=== PATIENT | female | born 1980 | race Caucasian/White ===

== ENCOUNTER → 2019-02-12 | Outpatient (CLI) | payer BC ==
[2019-02-12 15:45] LABS: Basophils % (A) 1 %; Eosinophils # (A) 0.1 k/uL (0-0.7); Eosinophils % (A) 2 %; HCT 39.2 % (34.0-46.0); HGB 12.7 gm/dL (11.4-16.0); Lymphocytes # (A) 2.2 k/uL (1.0-4.8); Lymphocytes % (A) 33 %; MCHC 32.3 g/dL (31.0-37.0); MCV 89.9 fL (80.0-100.0); Mean Platelet Volume 6.2; Monocytes # (A) 0.3 k/uL (0-1.0); Monocytes % (A) 5 %; Neutrophils % (A) 59 %; Platelet Count 341 k/uL (150-450); RBC 4.37 m/uL (3.80-5.40); RDW 13.4 % (11.5-15.5); WBC 6.8 k/uL (3.8-10.6)
== END | disposition home or self-care (01) ==
LOC: LABPAT 14:46
PROVIDERS: ATTEND Obstetrics & Gynecology
DX: Z01.812 Encounter for preprocedural laboratory examination (principal); N92.0 Excessive and frequent menstruation with regular cycle
CPT/HCPCS: 36415; 85025

== ENCOUNTER 2019-02-26 06:27 | Day surgery (SDC) | payer BC ==
[2019-02-25 09:43] VITALS: BMI 26.5
[~2019-02-26 06:27] MED LIST: DEXAMETHASONE SOD PHOSPHATE 10 MG/ML 1 ML VIAL IV ONE; LACTATED RINGERS 1,000 ML IV SCH; LIDOCAINE 1% 20 ML VIAL (10MG/ML) FOR IV START INTRADERMA PRN; ONDANSETRON 4 MG/2 ML VIAL IVP ONE; Pre Op ABX Message 1 EACH MISC MISCELLANE ONE; fentaNYL (PF) 50 MCG/ML 2 ML AMP IV PRN
[2019-02-26] MEDS ORDERED: MIDAZOLAM 2 MG/2 ML VIAL ONE (07:25)
[2019-02-26] MEDS ORDERED: fentaNYL (PF) 50 MCG/ML 2 ML AMP ONE (07:25)
[2019-02-26] MEDS ORDERED: KETOROLAC 30 MG/ML 1 ML VIAL ONE (07:25)
[2019-02-26] MEDS ORDERED: PROPOFOL 10 MG/ML 20 ML VIAL IV ONE (07:25)
[2019-02-26] MEDS ORDERED: LIDOCAINE 1% INJ 10MG/ML (20 ML MDV) ONE (07:25)
[2019-02-26] MEDS ORDERED: LIDOCAINE 1%-EPI 1:100,000 20 ML VIAL SQ ONE ×2 (07:44)
--- NOTE | 2019-02-26 07:57 | P.OP ---
Date of Procedure: 02/26/19 Preoperative Diagnosis: Menometrorrhagia Postoperative Diagnosis: Same Procedure(s) Performed: Diagnostic hysteroscopy and NovaSure endometrial ablation Anesthesia: KARLOS Surgeon: Farideh Sheriff Estimated Blood Loss (ml): 5 IV fluids (ml): 300 Urine output (ml): 50 Pathology: none sent Condition: stable Disposition: PACU Operative Findings: Fluffy endometrium with no gross intracavitary lesions Description of Procedure: After the patient was met in the preoperative holding area and all questions were answered, she was taken the operating room where anesthetic was administered without incident. Appropriate timeout procedure was undertaken. She was positioned, prepped and draped in the dorsal lithotomy position. Bladder was drained for approximately 50 mL of clear urine. Exam under anesthet ic was undertaken. Speculum was placed in the vagina and the cervix was grasped anteriorly with a single-tooth tenaculum. Paracervical block was placed with lidocaine plus epinephrine. Uterus was sounded to 8 cm. The cervix was then sequentially dilated to allow for passage of the diagnostic hysteroscope. Hegar dilators were utilized. The hysteroscope was introduced and the above findings were noted. The cystoscope was removed and the NovaSure endometrial ablation device was introduced. Cavity assessment test was passed. The device was enabled. Cavity length was 4.5 cm, width 3.5 cm, power 87 W, time 92 seconds. Following cessation of the treatment cycle the device was removed and the hysteroscope was reintroduced. Complete desiccation of the endometrium was noted. All instruments were then removed. The cervix was observed and no active bleeding was noted from the tenaculum sites. Speculum was removed. The patient was awoken from anesthetic and transported recovery area in stable condition. All counts reported to me as correct.
[2019-02-26 08:16] VITALS: TEMP 97
[2019-02-26] MEDS: HYDROmorphone 0.5 MG/0.5 ML SYRINGE IVP PRN ×3 (08:25→08:49)
[2019-02-26 08:33] VITALS: RESP 16
[2019-02-26 09:44] VITALS: BP 113/71; PULSE 95
== END 2019-02-26 10:10 | disposition home or self-care (01) ==
LOC: OR 06:27
PROVIDERS: ATTEND Obstetrics & Gynecology
DX: N92.1 Excessive and frequent menstruation with irregular cycle (principal); F32.9 Major depressive disorder, single episode, unspecified; Z82.49 Family history of ischemic heart disease and other diseases of the circulatory system; Z83.3 Family history of diabetes mellitus; Z83.49 Family history of other endocrine, nutritional and metabolic diseases; Z80.49 Family history of malignant neoplasm of other genital organs; Z79.899 Other long term (current) drug therapy; Z88.1 Allergy status to other antibiotic agents; Z88.0 Allergy status to penicillin
CPT/HCPCS: 81025; 58563; J2250; J1100; J2405; J2001; J3010; J1885; J2704; J1170

== ENCOUNTER → 2022-05-04 | Outpatient (CLI) | payer BC ==
[2022-05-04 15:47] LABS: % Iron Saturation 25.76 (12.00-45.00); ALT 20 U/L (8-44); AST 19 U/L (13-35); Albumin 4.4 g/dL (3.8-4.9); Albumin/Globulin Ratio 1.69 (1.60-3.17); Alkaline Phosphatase 64 U/L (41-126); BUN/Creat Ratio 22.14 Ratio (12.00-20.00); Blood Urea Nitrogen 15.5 mg/dL (9.0-27.0); Calcium 9.3 mg/dL (8.7-10.3); Carbon Dioxide 23.3 mmol/L (20.0-27.5); Chloride 104 mmol/L (96-109); Chol/HDL Ratio 3.06 Ratio; Globulin 2.6 g/dL (1.6-3.3); Glucose 75 mg/dL (70-110); Iron 110 ug/dL (50-170); LDL Cholesterol,Calculated 156.5 mg/dL (0.0-131.0); Non-African American GFR(CKD) 106.1 (60.0-200.0); Potassium 4.4 mmol/L (3.5-5.5); Sodium 140 mmol/L (135-145); Total Bilirubin <0.15 mg/dL (0.30-1.20); Total Iron Binding Capacity 427 ug/dL (228-460)
== END | disposition home or self-care (01) ==
LOC: LABWHC1 08:15
PROVIDERS: ATTEND Family Medicine
DX: Z13.220 Encounter for screening for lipoid disorders (principal); E61.1 Iron deficiency; E55.9 Vitamin D deficiency, unspecified; D51.8 Other vitamin B12 deficiency anemias; R53.83 Other fatigue
CPT/HCPCS: 36415; 80053; 80061; 82306; 82607; 83540; 83550; 84443

== ENCOUNTER → 2023-05-10 | Outpatient (CLI) | payer BC ==
[2023-05-10 15:18] LABS: Basophils # (A) 0.07 X 10*3/uL (0.00-0.10); Basophils % (A) 1.1 %; Eosinophils # (A) 0.15 X 10*3/uL (0.04-0.35); Eosinophils % (A) 2.3 %; HGB 13.8 g/dL (12.0-15.0); Lymphocytes # (A) 2.13 X 10*3/uL (0.90-5.00); Lymphocytes % (A) 32.5 %; MCH 29.4 pg (27.0-32.0); MCHC 32.1 g/dL (32.0-37.0); MCV 91.5 FL (80.0-97.0); Mean Platelet Volume 10.6 FL (9.5-12.2); Monocytes # (A) 0.47 X 10*3/uL (0.20-1.00); Monocytes % (A) 7.2 %; NRBC Per 100 WBC 0 X 10*3/uL (0.00-0.01); Neutrophils # (A) 3.72 X 10*3/uL (1.80-7.70); Neutrophils % (A) 56.6 %; Platelet Count 406 X 10*3/uL (140-440); RDW 14.4 % (11.5-14.5); WBC 6.56 X 10*3/uL (4.50-10.00)
[2023-05-10 15:37] LABS: % Iron Saturation 45.43 (12.00-45.00); Blood Urea Nitrogen 12.6 mg/dL (9.0-27.0); Chol/HDL Ratio 3.45 Ratio; Glucose 97 mg/dL (70-110); Iron 154 UG/DL (50-170); LDL Cholesterol,Calculated 143.9 mg/dL (0.0-131.0); Total Iron Binding Capacity 339 UG/DL (228-460)
[2023-05-10 15:38] LABS: ALT 18 U/L (8-44); AST 18 U/L (13-35); Albumin 4.2 g/dL (3.8-4.9); Albumin/Globulin Ratio 1.68 Ratio (1.60-3.17); Alkaline Phosphatase 62 U/L (41-126); Calcium 9.5 mg/dL (8.7-10.3); Carbon Dioxide 24.6 mmol/L (21.6-31.8); Chloride 104 mmol/L (96-109); Ferritin 33.8 ng/mL (10.0-291.0); Globulin 2.5 g/dL (1.6-3.3); Potassium 4.5 mmol/L (3.5-5.5); Sodium 140 mmol/L (135-145); Total Bilirubin 0.4 mg/dL (0.3-1.2); Total Protein 6.7 g/dL (6.2-8.2)
[2023-05-10 18:04] LABS: Hepatitis A Antibody IgM Nonreactive; Hepatitis B Core IgM Nonreactive; Hepatitis B Surface Antigen Nonreactive; Hepatitis C IgG Antibody Nonreactive
== END | disposition home or self-care (01) ==
LOC: LABWHC1 11:03
PROVIDERS: ATTEND Internal Medicine
DX: Z00.00 Encounter for general adult medical examination without abnormal findings (principal); Z11.59 Encounter for screening for other viral diseases; E55.9 Vitamin D deficiency, unspecified; J30.2 Other seasonal allergic rhinitis
CPT/HCPCS: 36415; 80053; 80061; 80074; 82306; 82728; 83540; 83550; 84443; 85025

== ENCOUNTER → 2023-05-12 | Outpatient (CLI) | payer BC ==
[2023-05-12 18:21] LABS: HCT 42.5 % (37.2-46.3); HGB 13.7 g/dL (12.0-15.0); MCH 29.4 pg (27.0-32.0); MCHC 32.2 g/dL (32.0-37.0); MCV 91.2 FL (80.0-97.0); Mean Platelet Volume 10.4 FL (9.5-12.2); NRBC Per 100 WBC 0 X 10*3/uL (0.00-0.01); Platelet Count 455 X 10*3/uL (140-440); RBC 4.66 X 10*6/uL (4.10-5.20); RDW 14.2 % (11.5-14.5); WBC 8.37 X 10*3/uL (4.50-10.00)
[2023-05-12 18:40] LABS: % Iron Saturation 40.11 (12.00-45.00)
[2023-05-12 19:38] LABS: Ferritin 45.6 ng/mL (10.0-291.0)
== END | disposition home or self-care (01) ==
LOC: LABWHC1 13:01
PROVIDERS: ATTEND Internal Medicine
DX: E83.19 Other disorders of iron metabolism (principal)
CPT/HCPCS: 36415; 82728; 83540; 83550; 85027

== ENCOUNTER → 2024-07-25 | Outpatient (CLI) | payer OTHER ==
[2024-07-25 14:48] LABS: Basophils % (A) 1.4 %; Eosinophils % (A) 2.8 %; HGB 14.7 g/dL (12.0-15.0); Lymphocytes # (A) 2.48 X 10*3/uL (0.90-5.00); MCH 29.3 pg (27.0-32.0); MCHC 32.7 g/dL (32.0-37.0); MCV 89.6 FL (80.0-97.0); Mean Platelet Volume 10.7 FL (9.5-12.2); Monocytes # (A) 0.59 X 10*3/uL (0.20-1.00); Monocytes % (A) 8.3 %; NRBC Per 100 WBC 0 X 10*3/uL (0.00-0.01); Neutrophils # (A) 3.71 X 10*3/uL (1.80-7.70); Neutrophils % (A) 52.4 %; Platelet Count 435 X 10*3/uL (140-440); RBC 5.02 X 10*6/uL (4.10-5.20); RDW 13.2 % (11.5-14.5); WBC 7.09 X 10*3/uL (4.50-10.00)
[2024-07-25 15:24] LABS: % Iron Saturation 42.96 (12.00-45.00); ALT 19 U/L (8-44); AST 20 U/L (13-35); Albumin 4.5 g/dL (3.8-4.9); Alkaline Phosphatase 54 U/L (41-126); Calcium 9.7 mg/dL (8.7-10.3); Carbon Dioxide 24.7 mmol/L (21.6-31.8); Chloride 104 mmol/L (96-109); Chol/HDL Ratio 3.44 Ratio; Ferritin 57.2 ng/mL (10.0-291.0); Globulin 2.5 g/dL (1.6-3.3); Glucose 89 mg/dL (70-110); Iron 122 UG/DL (50-170); LDL Cholesterol,Calculated 141.3 mg/dL (0.0-131.0); Potassium 4.8 mmol/L (3.5-5.5); Sodium 141 mmol/L (135-145); Total Bilirubin 0.4 mg/dL (0.3-1.2); Total Iron Binding Capacity 284 UG/DL (228-460); VLDL Calculation 13.26 mg/dL (5.00-40.00)
== END | disposition home or self-care (01) ==
LOC: LABWHC1 09:12
PROVIDERS: ATTEND Internal Medicine
DX: Z00.00 Encounter for general adult medical examination without abnormal findings (principal); E55.9 Vitamin D deficiency, unspecified
CPT/HCPCS: 36415; 80053; 80061; 82306; 82728; 83540; 83550; 84443; 85025